=== PATIENT | male | born 1945 | race Caucasian/White ===

== ENCOUNTER 2017-12-27 10:20 | Emergency (ER) | payer MEDICARE ==
[2017-12-27 11:28] LABS: Urine Appearance Cloudy; Urine Blood Negative (Negative); Urine Color Yellow; Urine Ketones Negative (Negative); Urine Protein Negative (Negative); Urine Specific Gravity 1.017 (1.010-1.030); Urine Urobilinogen Negative (Negative)
[2017-12-27 11:37] LABS: ABS Basophils 0 10^3/ul (0-0.2); ABS Eosinophils 0 10^3/ul (0-0.6); ABS Lymphocytes 0.6 10^3/ul (1.0-4.8); ABS Monocytes 0.9 10^3/ul (0-0.8); ABS Neutrophils 6.5 10^3/ul (1.5-7.7); ABS Nucleated RBC 0 10^3/ul; Eosinophil % 0.2 % (0-6); Hematocrit 35 % (42-52); Hemoglobin 12.2 g/dl (14.0-18.0); Lymphocyte % 7.4 % (25-47); Mean Corpuscular HGB Conc 35 g/dl (31-36); Mean Corpuscular Hemoglobin 32 pg (27-31); Mean Corpuscular Volume 93 fL (80-94); Mean Platelet Volume 8.5 um3 (7.4-10.4); Nucleated Red Blood Cells % 0; Platelet Count 172 10^3/ul (150-450); Red Cell Distribution Width 13 % (10.5-15); White Blood Count 8.1 10^3/ul (3.5-10.8)
[2017-12-27 11:45] LABS: INR 0.97 (0.77-1.02)
[2017-12-27 11:55] LABS: EGFR Non-African American 59.7 (>60)
[2017-12-27 15:21] VITALS: BP 121/60
--- NOTE | 2018-01-05 08:53 | ED ---
Luis Angel Moran Tiffany, scribed for Keven Echols MD on 12/27/17 at 1154 . GI/ HPI - HPI Summary HPI Summary: The patient is a 72 year old male presenting to [facility] with a chief complaint of dysuria since 19:00 yesterday. The patient rates the pain 3/10 in severity. Symptoms aggravated by nothing. Symptoms alleviated by nothing. Reports burning with urination, frequent feeling of needing to urinate but little output, chills , headache, myalgia. Denies fever, vomiting, diarrhea, shortness of breath, cough, chest pain, back pain, buttocks pain. Takes medication for hx of enlarged prostate. Hx of prostate infections, sees Dr. Croft (urologist) every 6 months. Reports same symptoms when he has had prostate infections. - History of Current Complaint Chief Complaint: EDUrogenitalProblems Time Seen by Provider: 12/27/17 11:01 Stated Complaint: UTI-LIKE SYMPTOMS Hx Obtained From: Patient Onset/Duration: Started Hours Ago - 19:00 yesterday, Still Present Timing: Constant Current Severity: Mild Pain Intensity: 3 Associated Signs and Symptoms: Positive: Negative - Buttocks pain, Chills, Other : - burning with urination, frequent feeling of needing to urinate but little output, headache, myalgia. Negative: Back Pain, Vomiting, Diarrhea, Fever, Cough, Chest Pain - Allergy/Home Medications Allergies/Adverse Reactions: Allergies Allergy/AdvReac Type Severity Reaction Status Date / Time No Known Allergies Allergy Verified 12/27/17 10:34 Home Medications: Home Medications Clobetasol 0.05% OINT* 1 applic TOPICAL BID 12/27/17 [History Confirmed 12/27/17 ] Finasteride TAB* [Proscar TAB*] 5 mg PO DAILY 12/27/17 [History Confirmed ] Sertraline* [Zoloft*] 50 mg PO DAILY 12/27/17 [History Confirmed 12/27/17] Tamsulosin CAP* [Flomax CAP*] 0.4 mg PO DAILY 12/27/17 [History Confirmed ] PMH/Surg Hx/FS Hx/Imm Hx Previously Healthy: No History: Reports: Other Problems/Disorders - Hx of enlarged prostate, hx of prostate infections Musculoskeletal History: Denies: Hx Rheumatoid Arthritis, Hx Osteoporosis Sensory History: Reports: Hx Contacts or Glasses Denies: Hx Deafness Opthamlomology History: Reports: Hx Contacts or Glasses EENT History: Denies: Hx Deafness - Surgical History Surgery Procedure, Year, and Place: NONE Infectious Disease History: No Infectious Disease History: Denies: Traveled Outside the [place] in Last 30 Days - Family History Known Family History: Positive: Other - Brother had prostate CA Review of Systems Positive: Chills. Negative: Fever Negative: Erythema Negative: Sore Throat Negative: Chest Pain Negative: Shortness Of Breath, Cough Negative: Abdominal Pain, Vomiting, Diarrhea, Nausea Positive: burning, dysuria, frequency, other - Little urinary output. Negative : hematuria Musculoskeletal: Negative - Buttocks pain Positive: Myalgia. Negative: Edema Negative: Rash Neurological: Negative - Dizziness Positive: Headache All Other Systems Reviewed And Are Negative: Yes Physical Exam - Summary Physical Exam Summary: Constitutional: Well-developed, Well-nourished, Alert. (-) Distressed Skin: Warm, Dry HENT: Normocephalic; Atraumatic Eyes: Conjunctiva normal Neck: Musculoskeletal ROM normal neck. (-) JVD, (-) Stridor, (-) Tracheal deviation Cardio: Rhythm regular, rate normal, Heart sounds normal; Intact distal pulses; The pedal pulses are 2+ and symmetric. Radial pulses are 2+ and symmetric. (-) Murmur Pulmonary/Chest wall: Effort normal. (-) Respiratory distress, (-) Wheezes, (-) Rales Abd: Soft, (-) Tenderness, (-) Distension, (-) Guarding, (-) Rebound exam: Deferred due to recurrent prostatitis Rectal exam: Prostate was normal by palpation, there was no fluctuance, prostate was non-boggy Musculoskeletal: (-) Edema Lymph: (-) Cervical adenopathy Neuro: Alert, Oriented x3 Psych: Mood and affect Normal Triage Information Reviewed: Yes Vital Signs On Initial Exam: Initial Vitals Temp Pulse Resp BP Pulse Ox 98.3 F 54 17 130/57 100 12/27/17 10:20 12/27/17 10:20 12/27/17 10:20 12/27/17 10:20 12/27/17 10:20 Vital Signs Reviewed: Yes Diagnostics - Vital Signs Vital Signs Temp Pulse Resp BP Pulse Ox 12/27/17 10:20 98.3 F 54 17 130/57 100 - Laboratory Result Diagrams: 12/27/17 11:28 12/27/17 11:28 Lab Statement: Any lab studies that have been ordered have been reviewed, and results considered in the medical decision making process. GIGU Course/Dx - Course Course Of Treatment: 72 y/o male complains of painful urination. There were no findings for meningitis or no nuchal rigidity. Patient is non-toxic appearing. There were no clinical findings of prostatitis. Diagnosis will be headache, dysuria. Patient discharged with follow up from primary care provider. - Diagnoses Provider Diagnoses: Headache, Dysuria Discharge - Sign-Out/Discharge Documenting (check all that apply): Discharge/Admit/Transfer - Discharge Plan Condition: Stable Disposition: HOME Patient Education Materials: Acute Headache (ED), Dysuria (ED) Referrals: Elie Champagne MD [Primary Care Provider] - 3 Days Additional Instructions: Follow up with Dr. Delgadillo, your primary care provider in 3 days. RETURN TO THE EMERGENCY DEPARTMENT FOR CHANGING OR WORSENING SYMPTOMS. The documentation as recorded by the Luis Angel rashid Tiffany accurately reflects the service I personally performed and the decisions made by , Keven Echols MD.
== END 2017-12-27 15:20 | disposition home or self-care (01) ==
LOC: ED 10:20
DX: R30.0 Dysuria (principal); R51 Headache
CPT/HCPCS: 36415; 80053; 81003; 83605; 84484; 85025; 85610; 85730; 87040; 87502; 99283